=== PATIENT | male | born 1990 | race Caucasian/White ===

== ENCOUNTER 2017-05-18 13:02 | Emergency (ER) | payer SELFPAY ==
[2017-05-18 14:12] VITALS: BP 119/66
--- NOTE | 2017-05-18 15:02 | UC ---
Head Injury HPI - HPI Summary HPI Summary: 26 year old with work injury. Here w/ head injury from hitting head w/ socket today 1130. Pt states socket flew off impact gun at work and hit RIGHT side of face- scraped bridge of nose and has laceration on RIGHT eyebrow from socket. UTD w/ tetanus. He was knocked to the floor, was dizzy for a few min, eye swelling and pain. Pain 7/10 at this time. Took APAP and Ibuprofen after it happened. The socket was going very fast as the impact gun was at high. No vision changes at this time. No loss of vision. No fireworks behind eye. Not worst [place] of life. no neuro deficits. Declined additional meds for pain in UC [ End ] - History Of Current Complaint Chief Complaint: UCHeadInjury Stated Complaint: HEAD INJURY (WC) Time Seen by Provider: 05/18/17 14:53 Hx Obtained From: Patient Onset/Duration: Sudden Onset Severity Currently: Moderate Severity Initially: Severe Pain Scale Used: 0-10 Numeric - 7 Character: Dull, Throbbing Alleviating Factor(s): Nothing Associated Signs And Symptoms: Positive: Nausea. Negative: LOC (Time In Secs./ Mins/Hrs), LOC Duration Unknown, Confusion, Memory Loss, Seizure, Epistaxis, Dental Malocclusion, Neck Pain, Vomiting - Allergies/Home Medications Allergies/Adverse Reactions: Allergies Allergy/AdvReac Type Severity Reaction Status Date / Time environmental Allergy Difficulty Uncoded 05/18/17 14:06 Breathing PMH/Surg Hx/FS Hx/Imm Hx Previously Healthy: Yes - Surgical History Surgical History: Yes Surgery Procedure, Year, and Place: [email or web address]. 04/2014-LEFT HAND REPAIR OF TENDONS X2 - Family History Known Family History: Negative: Diabetes - Social History Occupation: Employed Full-time Lives: With Family Alcohol Use: Rare Substance Use Type: None Smoking Status (MU): Never Smoked Tobacco Type: Smokeless Tobacco Amount Used/How Often: CHEWS 1 tin per week-week & half X 8 YEARS - Immunization History Most Recent Influenza Vaccination: none Most Recent Tetanus Shot: about 1 year ago Review of Systems Eyes: Blurred Vision, Eye Redness Neurological: Headache All Other Systems Reviewed And Are Negative: Yes Physical Exam Triage Information Reviewed: Yes Appearance: Well-Appearing, Well-Nourished, Thin Vital Signs: Initial Vital Signs Temp 98.5 F 05/18/17 14:06 Pulse 66 05/18/17 14:06 Resp 16 05/18/17 14:06 BP 119/66 05/18/17 14:06 Pulse Ox 99 05/18/17 14:06 Vital Signs Reviewed: Yes Eye Exam: Normal, Other ENT: Positive: Hearing grossly normal, TMs normal, Other - right lateral nose with superficial abrasion 3x3 mm Neck exam: Normal Neck: Positive: 1 Respiratory Exam: Normal Cardiovascular Exam: Normal Musculoskeletal Exam: Normal Neurological Exam: Normal Psychological Exam: Normal Skin: Positive: Other - right side of nasal bridge with abrasion, right eyebrow with superficial laceration < 5mm and linear. not actively bleeding. significant tenderness to the orbit superiorly. not tender inferior orbit. mild deviation to the left of the nose . Head Injury Course/Dx - Course Course Of Treatment: Witht the severity of impact concern for potential orbital fracture. He states his deviated septum was already there . No significant nose pain to papation. Lac was irrigated and placed ice pack on it. No bleeding. Steri stripsamd skin glue and approximated and was able to bring the lac together nicely as it was already linear and superficial. I advised no significant physical exertion until Headache goes away and he is aware. no work today and if [place] in AM then no work tomorrow . - Differential Dx/Diagnosis Differential Diagnosis/HQI/PQRI: Concussion Without LOC, Laceration, Orbital Fracture Provider Diagnoses: right eyebrow laceration and concussion Discharge - Discharge Plan Condition: Good Disposition: HOME Patient Education Materials: Facial Laceration (ED), Concussion (ED) Referrals: No Primary Care Phys,NOPCP [Primary Care Provider] - If Needed
--- NOTE | 2017-05-18 16:14 | RAD ---
INDICATION: Trauma to the RIGHT orbit region. COMPARISON: No relevant prior exams available on the [facility] for comparison. TECHNIQUE: Multidetector CT base of the skull through mandible without contrast. Multiplanar reformation. REPORT: Mild soft tissue swelling at the preseptal region of the LEFT orbit and over the LEFT zygomatic arch and infratemporal fossa. No loculated soft tissue hematoma evident. Negative for edema within the post septal LEFT orbit. The orbital and maxillary sinus margins, zygomatic arches, lamina papyracea, base of the maxilla, pterygoid plates, and nasal bones are intact. The mandible is intact. Normal temporal mandibular joint alignment. Mild mucosal thickening and mucous retention cyst or polyp at the LEFT maxillary sinus. Negative for paranasal sinus fluid levels. Clear mastoid air spaces. IMPRESSION: Mild LEFT side soft tissue swelling. Negative for fracture.
== END 2017-05-18 16:37 | disposition home or self-care (01) ==
LOC: UCCORT 13:02
DX: S06.0X0A Concussion without loss of consciousness, initial encounter (principal); S01.111A Laceration without foreign body of right eyelid and periocular area, initial encounter; W22.8XXA Striking against or struck by other objects, initial encounter; Y93.89 Activity, other specified; Y92.89 Other specified places as the place of occurrence of the external cause; Y99.0 Civilian activity done for income or pay; F17.220 Nicotine dependence, chewing tobacco, uncomplicated
CPT/HCPCS: 12011; 70480; 99211; G0463

== ENCOUNTER 2017-07-23 18:32 | Emergency (ER) | payer OTHER ==
[2017-07-23 19:00] VITALS: BP 114/73
--- NOTE | 2017-07-23 19:32 | UC ---
Back Pain HPI - HPI Summary HPI Summary: 2 week h/o LBP on the left, worsened in the last 2 days. Much worse today after falling trying to put boots on standing up. - History of Current Complaint Chief Complaint: UCBackPain Stated Complaint: BACK INJURY Time Seen by Provider: 07/23/17 19:27 Hx Obtained From: Patient Onset/Duration: Gradual Onset, Lasting Weeks - 2, Worse Since - today Timing: Constant Severity Initially: Mild Severity Currently: Severe Back Pain: Is Discrete @ - left lower pain, Radiates To - up the back a little Character: Sharp - occasionally, Aching - the last 2 weeks., Spasmodic - right now Aggravating Factor(s): Movement, Lifting, Bending, Walking Alleviating Factor(s): Rest, Position Associated Signs And Symptoms: Positive: Pain with Weight Bearing. Negative: Numbness, Tingling, Bladder Incontinence, Bowel Incontinence Related History: Similar Episode Dx As - low back pain - Allergies/Home Medications Allergies/Adverse Reactions: Allergies Allergy/AdvReac Type Severity Reaction Status Date / Time environmental Allergy Difficulty Uncoded 07/23/17 19:00 Breathing PMH/Surg Hx/FS Hx/Imm Hx Previously Healthy: Yes - Surgical History Surgical History: Yes Surgery Procedure, Year, and Place: [email or web address]. 04/2014-LEFT HAND REPAIR OF TENDONS X2 - Family History Known Family History: Positive: Hypertension, Diabetes Negative: Cardiac Disease - Social History Occupation: Employed Full-time Lives: With Family Alcohol Use: Occasionally Substance Use Type: None Smoking Status (MU): Never Smoked Tobacco Type: Smokeless Tobacco Amount Used/How Often: CHEWS 1 tin per week-week & half X 8 YEARS Cessation Counseling: Patient Advised to Stop - Immunization History Most Recent Influenza Vaccination: none Most Recent Tetanus Shot: about 1 year ago Review of Systems Musculoskeletal: Arthralgia - left low back. Is Patient Immunocompromised?: No All Other Systems Reviewed And Are Negative: Yes Physical Exam Triage Information Reviewed: Yes Appearance: Well-Appearing, Well-Nourished, Pain Distress - moderate, lying on the exam table Vital Signs: Initial Vital Signs Temp 99.5 F 07/23/17 18:54 Pulse 56 07/23/17 18:54 Resp 15 07/23/17 18:54 BP 114/73 07/23/17 18:54 Pulse Ox 99 07/23/17 18:54 Vital Signs Reviewed: Yes Eyes: Positive: Conjunctiva Clear Neck exam: Normal Respiratory Exam: Normal Abdominal Exam: Normal Musculoskeletal: Positive: ROM Limited @ - lumbar spine. Unable to stand up straight Neurological Exam: Normal Psychological Exam: Normal Skin Exam: Normal Back Pain Course/Dx - Differential Dx/Diagnosis Differential Diagnosis/HQI/PQRI: Herniated Disc, Strain, Sprain Provider Diagnoses: Acute musculoskeletal low back pain. Discharge - Discharge Plan Condition: Stable Disposition: HOME Prescriptions: Cyclobenzaprine TAB* [Flexeril 10 MG TAB*] 10 mg PO TID PRN #20 tab PRN Reason: Pain - Back Naproxen [Naproxen DR 500 MG TAB] 500 mg PO BID PRN #60 tab PRN Reason: Pain - Back Patient Education Materials: Acute Low Back Pain (ED), Naproxen (By mouth), Cyclobenzaprine (By mouth) Referrals: No Primary Care Phys,NOPCP [Primary Care Provider] - Additional Instructions: Please see a chiropractor tomorrow. to help prevent muscle spasm: 1. Hydration. 2. Vitamin D3 5000iu caps, 3 all at once once a week. 3. Calcium 1000-1200mg a day. 4. Magnesium 400 or 500mg once or twice a day. To prevent future back pain issues: Start yoga when your pain is better. Do is twice a week. Search yoga "beginning yoga for back pain".
[2017-07-23] MEDS ORDERED: Cyclobenzaprine TAB* 10 MG PO ONE (19:44)
[2017-07-23] MEDS ORDERED: Ketorolac INJ* 60 MG/2 ML VIAL IM ONE (19:44)
== END 2017-07-23 20:20 | disposition home or self-care (01) ==
LOC: UCCORT 18:32
DX: M54.5 Low back pain (principal); Z72.89 Other problems related to lifestyle; F17.220 Nicotine dependence, chewing tobacco, uncomplicated
CPT/HCPCS: 81003; 96372; 99212; A9270-GY; G0463; J1885